=== PATIENT | female | born 2000 | race Caucasian/White ===

== ENCOUNTER 2023-06-15 20:42 | Emergency (ER) | payer OTHER ==
--- NOTE | 2023-06-15 20:54 | ED GI ---
General Chief Complaint: Abdominal/GI Problems Stated Complaint: VOMITING Source of Information: Patient, Family (mother) Exam Limitations: No Limitations History of Present Illness Date Seen by Provider: Jun 15, 2023 Time Seen by Provider: 20:45 Initial Comments 23-year-old female who is otherwise healthy presents to the emergency department today for vomiting x2 hours. No fevers or chills. She has diffuse abdominal cramping without any focal tenderness. She just started her menstrual cycle today and does frequently have nausea with vomiting that is fairly significant with menses however is usually not until a few days into her menstrual cycle and its not usually this bad. Other states that minute any water hits her mouth she vomits immediately. No known sick contacts. All other systems reviewed and negative except documented per HPI. Voice recognition software was used to help create this chart Allergies and Home Medications Allergies Coded Allergies: No Known Drug Allergies (Unverified , 06/15/23) Patient Home Medication List Home Medication List Reviewed: Yes Ondansetron (Ondansetron Odt) 8 Mg Tab.rapdis, 8 MG SL Q6H PRN for NAUSEA/VOMITING Prescribed by: SARAH VALENCIA MD on 06/15/232116 Last Action: New Order Review of Systems Review of Systems Constitutional: see HPI Past Arnwkdh-Mgotdk-Icyxfr Hx Patient Social History Tobacco Use?: Yes Use of E-Cig and/or Vaping dev: Yes Substance use?: No Alcohol Use?: Yes Alcohol Frequency: Once in a while Physical Exam Vital Signs Vital Signs - First Documented 06/15/23 20:45 Temp 36.4 Pulse 93 Resp 14 B/P (MAP) 104/49 (67) Pulse Ox 100 O2 Delivery Room Air Capillary Refill : Height/Weight/BMI Height: '" Weight: lbs. oz. kg; BMI Method: General Appearance: WD/WN, no apparent distress HEENT: normal ENT inspection, pharynx normal Neck: non-tender, full range of motion, supple Respiratory: chest non-tender, lungs clear, normal breath sounds, no respiratory distress, no accessory muscle use Cardiovascular: regular rate, rhythm, no murmur Gastrointestinal: normal bowel sounds, non tender, soft, no organomegaly Extremities: normal inspection, normal capillary refill Skin: normal color, warm/dry Progress/Results/Core Measures Results/Orders My Orders Orders - SARAH VALENCIA DO Urine Bedside (06/15/23 20:46) Ondansetron Injection (Ondansetron Inj (06/15/23 21:00) Diphenhydramine Injection (Diphenhydram (06/15/23 21:00) Rx-Ondansetron Po (Rx-Zofran Po) (06/15/23 21:15) Medications Given in ED Current Medications Medications Dose Ordered Sig/Radha Route Start Time Stop Time Status Last Admin Dose Admin Diphenhydramine HCl 50 mg ONCE ONCE IM 06/15/23 21:00 06/15/23 21:01 DC 06/15/23 20:58 50 MG Ondansetron HCl 4 mg ONCE ONCE IM/IV 06/15/23 21:00 06/15/23 21:01 DC 06/15/23 20:59 4 MG Ondansetron HCl 4 mg ONCE ONCE PO 06/15/23 21:15 06/15/23 21:16 DC 06/15/23 21:17 4 MG Vital Signs/I&O 06/15/23 06/15/23 20:45 21:22 Temp 36.4 36.4 Pulse 93 90 Resp 14 15 B/P (MAP) 104/49 (67) 104/49 Pulse Ox 100 100 O2 Delivery Room Air Room Air Departure Communication (Admissions) Pt given IM benadryl and zofran. Feeling much better. TOlerating PO. discharged in stable condition. Consideration for labs but not indicated as she has normal vital signs and only been vomiting for 2 hours. She has a negative bedside test. Impression Primary Impression: Nausea and vomiting Qualified Codes: R11.2 - Nausea with vomiting, unspecified Disposition: HOME, SELF-CARE Condition: Stable Departure-Patient Inst. Patient Instructions: Nausea and Vomiting, Adult ED Scripts Ondansetron (Ondansetron Odt) 8 Mg Tab.rapdis 8 MG SL Q6H PRN for NAUSEA/VOMITING for 3 Days, #12 TAB Prov: SARAH VALENCIA DO 06/15/23 SARAH VALENCIA DO Jun 15, 2023 20:54
[2023-06-15] MEDS ORDERED: ONDANSETRON INJECTION 4 MG/2 ML (SDV) IM/IV ONE (21:00)
[2023-06-15] MEDS ORDERED: diphenhydrAMINE INJ 50 MG/ML VIAL IM ONE (21:00)
[2023-06-15] MEDS ORDERED: RX-ONDANSETRON 4 MG ODT (ZOFRAN) PPK #4 PO ONE (21:15)
[2023-06-15] MEDS ORDERED: ONDA8TAB13 SL (21:17)
[2023-06-15 21:22] VITALS: BP 104/49
== END 2023-06-15 21:22 | disposition home or self-care (01) ==
LOC: ER FS 20:43
DX: R11.2 Nausea with vomiting, unspecified (principal); F17.290 Nicotine dependence, other tobacco product, uncomplicated
CPT/HCPCS: 84703; 99284